=== PATIENT | male | born 1950 | race Caucasian/White ===

== ENCOUNTER 2017-09-14 09:26 | Day surgery (SDC) | payer MEDICARE ==
[2017-09-13 10:30] VITALS: BMI 36.6
--- NOTE | 2017-09-14 12:03 | OP ---
DATE OF PROCEDURE: 09/14/2017 SURGEON: Daren Cummings M.D. PREOPERATIVE DIAGNOSES: History of large colon polyps in 2015 with high grade dysplasia. Followup colonoscopy in 2016 three small adenomas were removed with no dysplasia. POSTOPERATIVE DIAGNOSIS: Normal colonoscopy except for diverticulosis coli. No polyps seen. RECOMMENDATIONS: Repeat colonoscopy in 4 years. ANESTHESIA: TIVA. PROCEDURE IN DETAIL: After the patient was informed of the risks, benefits, possible complications o f endoscopy including perforation, bleeding, reactions to medication and aspiration, informed consent was obtained. The patient was brought to the endoscopy suite where he was sedated in gradual fashio n. Once he was comfortable, a rectal exam performed was normal. The endoscope was advanced through the anal canal through the colon to cecum which was identified by the ileocecal valve and appendiceal orifice. The scope was then slowly removed. The prep was very good and there was good visualizatio n of mucosa. There was no mass, lesions or AV malformations. There were no polyps seen, tattoo in t he left colon seen from previous polypectomy in 2014. There was no evidence of residual polyp tissue . Retroflexed views in the rectum were normal. There was diverticulosis coli in the sigmoid. The s cope was removed. The patient tolerated the procedure with no complications. RECOMMENDATIONS: Follow up in my office in 3 months regarding hepatoma screening and cirrhosis.
[2017-09-14] MEDS ORDERED: Lidocaine 1% PF 5 ML VIAL ONE (16:32)
[2017-09-14] MEDS ORDERED: PROPOFOL 200 MG/20 ML VIAL ONE (16:32)
== END 2017-09-14 12:30 | disposition home or self-care (01) ==
LOC: SDC 09:26
PROVIDERS: ATTEND Internal Medicine Gastroenterology
PROC: 0DJD8ZZ Inspection of Lower Intestinal Tract, Via Natural or Artificial Opening Endoscopic (ICD-10-PCS; principal; 2017-09-14)
DX: Z12.11 Encounter for screening for malignant neoplasm of colon (principal); K57.30 Diverticulosis of large intestine without perforation or abscess without bleeding; K74.60 Unspecified cirrhosis of liver; F10.11 Alcohol abuse, in remission; M19.90 Unspecified osteoarthritis, unspecified site; I10 Essential (primary) hypertension; F41.9 Anxiety disorder, unspecified; K72.90 Hepatic failure, unspecified without coma; Z86.010 Personal history of colon polyps; Z87.891 Personal history of nicotine dependence; Z79.899 Other long term (current) drug therapy; Z88.0 Allergy status to penicillin; Z88.8 Allergy status to other drugs, medicaments and biological substances; Z98.890 Other specified postprocedural states
CPT/HCPCS: J2001; J2704

== ENCOUNTER 2021-05-28 07:59 | Outpatient (CLI) | payer OTHER ==
[2021-05-28 08:41] LABS: Estimated GFR-MDRD - POC Greater than 90
== END 2021-05-28 08:00 | disposition home or self-care (01) ==
LOC: SCSMRI 07:59
PROVIDERS: ATTEND Internal Medicine Gastroenterology
DX: K74.69 Other cirrhosis of liver (principal)
CPT/HCPCS: 74183; 82565

== ENCOUNTER 2022-02-16 08:39 | Outpatient (CLI) | payer MEDICARE ==
[2022-02-16] MEDS ORDERED: Magnevist 469MG/ML 20 ML VIAL ONE (15:33)
== END 2022-02-16 08:40 | disposition home or self-care (01) ==
LOC: MRI 08:39
PROVIDERS: ATTEND Internal Medicine Gastroenterology
DX: K74.69 Other cirrhosis of liver (principal); K72.90 Hepatic failure, unspecified without coma; R16.0 Hepatomegaly, not elsewhere classified
CPT/HCPCS: 74183; A9579

== ENCOUNTER 2022-02-24 06:08 | Day surgery (SDC) | payer MEDICARE ==
[2022-02-23 12:26] VITALS: BMI 32.5
[2022-02-24] MEDS ORDERED: Lidocaine 1% MPF 2 ML VIAL ONE (07:59)
[2022-02-24] MEDS ORDERED: PROPOFOL 200 MG/20 ML VIAL ONE (07:59)
== END 2022-02-24 09:16 | disposition home or self-care (01) ==
LOC: SDC 06:08
PROVIDERS: ATTEND Internal Medicine Gastroenterology
PROC: 0DJ08ZZ Inspection of Upper Intestinal Tract, Via Natural or Artificial Opening Endoscopic (ICD-10-PCS; principal; 2022-02-24)
PROC: 0DBL8ZX Excision of Transverse Colon, Via Natural or Artificial Opening Endoscopic, Diagnostic (ICD-10-PCS; 2022-02-24)
DX: Z12.11 Encounter for screening for malignant neoplasm of colon (principal); K63.5 Polyp of colon; K52.832 Lymphocytic colitis; K74.60 Unspecified cirrhosis of liver; I85.10 Secondary esophageal varices without bleeding; K76.6 Portal hypertension; K31.89 Other diseases of stomach and duodenum; K44.9 Diaphragmatic hernia without obstruction or gangrene; K72.90 Hepatic failure, unspecified without coma; R16.0 Hepatomegaly, not elsewhere classified; I10 Essential (primary) hypertension; M10.9 Gout, unspecified; Z86.010 Personal history of colon polyps; Z86.73 Personal history of transient ischemic attack (TIA), and cerebral infarction without residual deficits; Z79.899 Other long term (current) drug therapy; Z88.0 Allergy status to penicillin; Z88.8 Allergy status to other drugs, medicaments and biological substances
CPT/HCPCS: 88305; J2704